=== PATIENT | female | born 1965 | race Caucasian/White ===

== ENCOUNTER 2025-04-19 04:07 | Emergency (ER) | payer OTHER, SELFPAY ==
[2025-04-19 04:09] VITALS: BP 142/78
[2025-04-19 06:04] VITALS: BMI 25.7
[2025-04-19 06:22] LABS: % Basophils 0.6 % (0-2); % Immature Granulocytes 0.4 % (0-0.5); % Lymphocytes 19.6 % (20.5-51.1); % Monocytes 6.5 % (1.7-9.3); % Neutrophils 70.9 % (42.2-75.2); Absolute Eosinophils 0.1 10^3/uL (0-0.7); Absolute Monocytes 0.3 10^3/uL (0.1-0.6); Absolute Neutrophils 3.6 10^3/uL (1.4-6.5); Hematocrit 38.5 % (37.0-47.0); Hemoglobin 13.4 g/dL (12.0-16.0); Mean Corp Hgb Conc. 34.8 g/dL (33.0-37.0); Mean Corpuscular Hgb 31.5 pg (27.0-31.0); Mean Corpuscular Volume 90.6 fL (81.0-99.0); Nucleated Red Blood Cells % 0 %; Platelet Count 186 10^3/uL (130-400); Red Blood Cell Count 4.25 10^6/uL (4.20-5.40); Red Cell Dist. Width 12.6 % (11.5-14.5); White Blood Cell Count 5.1 10^3/uL (4.8-10.8)
[2025-04-19 06:40] LABS: HCG, Serum Qualitative Screen Negative
--- NOTE | 2025-04-19 06:44 | ED.GENMED ---
History of Present Illness
General
Chief Complaint: Abdominal Pain
Source: patient
Exam Limitations: none
Time Seen by Provider: 04/19/25 06:27
Nursing documentation reviewed up to this point in time: agreed with
History of Present Illness
History of Present Illness:
59-year-old female with a past medical history of ulcerative colitis, rheumatoid arthritis who presents to the emergency department for evaluation of abdominal pain. Patient reports onset of symptoms 2 days ago that she says initially they were
relatively mild but last night before bed became more constant and intense. She reports a cramping pain in the right lower quadrant. She reports associated anorexia�she said she had no appetite and did not eat anything yesterday. She said she has
had some mild nausea no vomiting. She has had some loose stools yesterday morning, nonbloody. She denies any fever. Denies chills. She denies urinary symptoms. She denies similar symptoms in the past. She denies any prior abdominal surgeries.
Review of Systems
Review of Systems
All Other Systems: ROS reviewed and negative except as documented in HPI and ROS
Constitutional: Denies fever or chills
Respiratory: Denies cough or trouble breathing
Cardiac: Denies chest pain
ABD/GI: Reports abdominal pain, nausea and diarrhea; Denies vomiting or bloody stools
: Denies dysuria, flank pain, bleeding or dark urine
Musculoskeletal: Denies neck pain or back pain
Neurological: Denies headache
Phy Exam
Physical Exam
Physical Exam:
General: Awake, alert, oriented x3; no acute distress
Head: Normocephalic, atraumatic
Eyes: Conjunctiva normal, sclera anicteric
Throat: Airway intact, handling secretions
Neck: Trachea midline, supple without meningismus
Lungs: Clear to auscultation bilaterally, no wheezing, rales, rhonchi
Heart: Regular rate and rhythm, no murmurs, gallops, or rubs
Abd: Soft, non distended, markedly tender to palpation right lower quadrant as well as in the left lower quadrant however she has a positive Rovsing sign�palpation of the left causes pain in the right
Neuro: No gross deficits
Skin: no rash in area of concern
Extremities: Warm and well-perfused
Scores
Heart Failure Risk
Heart Failure Risk Score: Not Applicable
Heart Score for Chest Pain Patients
STEMI patient?: Not applicable
Withdrawal Assessment of Alcohol
Withdrawal Assessment Completed?: Not applicable
Course
Orders/Labs/Results
Orders:
Orders
04/19/25 06:13
Test Result ONCE
04/19/25 06:14
CA 125 Urgent
Comment: ADD ON
CEA Urgent
Comment: ADD ON
Complete Blood Count/With Diff Urgent
Comprehensive Metabolic Panel Urgent
HCG, Serum Qualitative Screen Urgent
Lipase Urgent
04/19/25 06:42
Iohexol [Omnipaque] See Protocol PO NOW STA
04/19/25 06:43
CT Abd/pel W Iv And Oral Contr Urgent
Comment:
Reason For Exam: RLQ abd pain, anorexia, RLQ TTP
Ketorolac [Toradol] 15 mg IV NOW STA
Ondansetron Injectable [Zofran] 4 mg IV NOW STA
04/19/25 06:45
0.9% Sodium Chloride 1000 ml [Nss] 1,000 ml IV 100 mls/hr
04/19/25 07:34
Urinalysis Reflex To Culture Urgent
Date Specimen was Collected: 04/19/25
Time Specimen was Collected: 07:25
04/19/25 09:47
US Pelvis W Transvag Combined Urgent
Reason For Exam: pelvic mass, eval for torsion
04/19/25 14:09
Add On- LAB Urgent
Tests Added?: CEA, CA 125
04/19/25 15:07
Morphine Sulfate 4 mg IV NOW STA
Abnormal Lab Results
04/19/25 04/19/25
06:14 07:34
MCH 31.5 H pg
(27.0-31.0)
Absolute Lymphs (auto) 1.0 L 10^3/uL
(1.2-3.4)
Lymphocytes % 19.6 L %
(20.5-51.1)
Chloride 111 H mmol/L
(98-107)
Creatinine 0.5 L mg/dL
(0.6-1.0)
Glucose 116 H mg/dl
(70-99)
ALT 41 H U/L
(0-35)
Urine Ketones 3+ A
(Negative)
04/19/25 06:14
04/19/25 06:14
Vital Signs
Initial and Last Documented VS:
Initial Vital Signs
Temp Pulse Resp BP Pulse Ox
36.4 C 66 26 142/78 98
04/19/25 04:09 04/19/25 04:09 04/19/25 04:09 04/19/25 04:09 04/19/25 04:09
Last Documented Vital Signs
Temp Pulse Resp BP Pulse Ox
36.4 C 70 16 119/63 100
04/19/25 04:09 04/19/25 15:24 04/19/25 15:24 04/19/25 15:24 04/19/25 15:24
MDM/Problems Addressed
Differential Diagnosis Includes:
Appendicitis, UC flare/terminal ileitis, cholelithiasis/cholecystitis, diverticulitis
MDM/Problems Addressed:
59-year-old female presents for evaluation of abdominal pain in the right lower quadrant associate with anorexia and mild nausea worsening over the past 48 hours. Vitals and exam as above. She had lab work sent in triage including CBC and CMP
showed no clinically significant abnormalities. hCG is negative. Will add urinalysis. Will check CT abdomen pelvis with p.o. and IV contrast. Treat with Toradol, Zofran, fluids. Reassess after the above.
Urinalysis positive for ketones but no acute infection. CT still pending. Clinical reassessment patient reports some improvement with treatment in ER. Vital signs stable. Continue to monitor.
CT showed signs concerning for ovarian neoplasm in the right lower abdomen. Appendix not clearly visualized but no fat stranding or other signs to suggest appendicitis. She has no leukocytosis or fever. On clinical reassessment of her abdomen
after Toradol she has essentially no tenderness. It seems very likely that her pain is from this ovarian neoplasm rather than appendicitis at this point although I did explain to the patient that without definitively visualize the appendix we
cannot rule this out completely. We are going to send for a follow-up ultrasound to evaluate for any signs of ovarian torsion and to better characterize this finding on CT.
Ultrasound shows findings concerning for ovarian neoplasm. Unfortunately right ovary was not well-visualized but there were no overt signs of ovarian torsion. Certainly clinically she does not appear to have ovarian torsion as she says her pain
has significantly improved and she is resting comfortably in bed with normal vital signs. I had a long discussion with patient regarding findings on CT/ultrasound. She follows with CHIEF ELECTRICIAN through [facility] (Clemencia Jones). Will call patient's CHIEF ELECTRICIAN
to schedule follow-up plan.
Unfortunately on repeated attempts I was not able to get in touch with patient's primary CHIEF ELECTRICIAN. I had a long discussion with the patient and instead reached out to our [facility] RECOVERY CONSULTANT oncology team here at [facility]. Recommended CA125, CEA levels which were
added. Recommended MRI pelvis with and without. I had a long discussion with the patient she is still having significant pain does not feel comfortable going home. Will admit for symptom management and continued workup. D[facility] RECOVERY CONSULTANT oncology requested
urgent D[employer] RECOVERY CONSULTANT consultation given continued pain�I spoke with DISASTER RECOVERY CONSULTANT to see patient. Case discussed with hospitalist.
After initial admission, case further discussed with hospitalist, DISASTER RECOVERY CONSULTANT, [facility] REC[facility]ERY CONSULTANT oncology and ultimately recommendation was for transfer. Patient established with [facility], patient is agreeable to go to [facility]. Will discuss with transfer center at
[facility].
Patient accepted for transfer by Dr. Clifton. Monitor pending transfer.
*Radiology
Radiology exam reviewed: radiology read reviewed
*Pulse Oximetry
SaO2: 97
Oxygen Mode of Delivery: Room air
Patient hypoxic: no (97%)
*Critical Care Note
Total Time (30-74mins, 75-104mins- exclusive of procedures): Not Applicable
Data Reviewed
Source: patient
Patient Management
Discussion with other providers: Hospitalist (Discussed with hospitalist) and Complaint Supervisor (Discussed with CHIEF ELECTRICIAN, DISASTER RECOVERY CONSULTANT oncology)
Escalation/DeEscalation of care consider admission/obs:
Admission indicated
ED Attending Note
-
Portions of this chart may have been created with voice recognition software.� Occasional wrong word or��sound alike� substitutions may have occurred due to the inherent limitations of voice recognition software.
Discharge Plan
Departure
Patient Disposition: Acute Care Hospital
Date of Disposition: 04/19/25
Time of Disposition: 14:35
Patient with high blood pressure during this ER visit?: No
Discharge Problem:
Mass of right ovary, Abdominal pain
Prescriptions:
No Action
mesalamine 1.2 gram tablet,delayed release (DR/EC)
2.4 g PO DAILY
methotrexate sodium 2.5 mg Tablet
12.5 mg PO MO
tamoxifen 10 mg Tablet
10 mg PO Q48H
folic acid 1 mg Tablet
1 mg PO DAILY
cholecalciferol (vitamin D3) [Vitamin D3] 50 mcg (2,000 unit) Tablet
50 mcg PO DAILY
Referrals:
Chrissy Elliott MD [Family Provider, Family Practice]
Hospital Transfer
Other hospital: [facility]
I certify that the patient requires transfer: Yes
Discussed case with accepting physician: Dr. Clifton
Reason for transfer: availability of service and specialties available
Interventions
Interventions:
*Risk Screen - Suicide Last Done: 04/19/25 04:09
*General Assessment Last Done: 04/19/25 06:06
*Neglect/Abuse Screening Last Done: 04/19/25 04:09
*ED- Fall Risk Assessment Last Done: 04/19/25 06:06
*ED COVID-19 Vaccine History Last Done: 04/19/25 06:06
QB-Cluric-Jfbafhsetp Assessment Last Done: 04/19/25 06:24
Discharge Date and Time
Print Language: [id number]
[2025-04-19 06:47] LABS: ALT (SGPT) 41 U/L (0-35); AST (SGOT) 35 U/L (14-36); Albumin 4.1 g/dl (3.5-5.0); Alkaline Phosphatase 50 U/L (38-126); Blood Urea Nitrogen 12 mg/dl (7-17); Calcium 9.1 mg/dl (8.4-10.2); Carbon Dioxide 25 mmol/L (22-30); Chloride 111 mmol/L (98-107); Estimated Creatinine Clearance 97 ml/min; Glucose 116 mg/dl (70-99); Lipase 71 U/L (23-300); Potassium 3.6 mmol/L (3.5-5.1); Sodium 140 mmol/L (135-145); Total Bilirubin 0.5 mg/dl (0.2-1.3); Total Protein 6.8 g/dl (6.3-8.2); eGFR > 60.00
[2025-04-19 07:00] VITALS: BP 121/74
[2025-04-19] MEDS: NSS 1000 IV (07:06)
[2025-04-19] MEDS: TORADOL 15 MG IV (07:07)
[2025-04-19] MEDS: OMNIPAQUE 50 ML PO (07:07)
[2025-04-19] MEDS: ZOFRAN 4 MG IV (07:07)
[2025-04-19 07:39] LABS: Urine Albumin Negative (Neg - Trace); Urine Bilirubin Negative (Negative); Urine Character Slightly Cloudy (Clear); Urine Color Yellow; Urine Glucose Negative (Negative); Urine Ketone 3+ (Negative); Urine Leukocyte Negative (Negative); Urine Nitrite Negative (Negative); Urine Occult Blood Negative (Negative); Urine Specific Gravity 1.015 (<1.030); Urine Urobilinogen Negative (Neg - 1+)
[2025-04-19 13:00] VITALS: BP 122/74
[2025-04-19 15:24] VITALS: BP 119/63
[2025-04-20 13:23] LABS: CA 125 22.7 U/mL (0-35)
== END 2025-04-19 16:38 | disposition short-term general hospital (02) ==
LOC: EMR 04:07
PROVIDERS: Emergency Medicine; EMERGENCY PHYSICIAN Emergency Medicine; FAMILY PHYSICIAN Family Medicine
DX: N83.9 Noninflammatory disorder of ovary, fallopian tube and broad ligament, unspecified (principal); R10.9 Unspecified abdominal pain; K51.90 Ulcerative colitis, unspecified, without complications; M06.9 Rheumatoid arthritis, unspecified; R93.89 Abnormal findings on diagnostic imaging of other specified body structures
CPT/HCPCS: 99284; 96374; 96375; 96361; 74177; 76830; 76856; 80053; 81003; 82378; 83690; 84703; 85025; 86304; Q9967